=== PATIENT | female | born 1970 | race Caucasian/White ===

== ENCOUNTER 2023-07-23 01:31 | Emergency (ER) | payer SELFPAY ==
[2023-07-23 01:59] VITALS: BP 167/95; PULSE 69; RESP 18; TEMP 97.6; BMI 28.2
[2023-07-23] MEDS ORDERED: VALSARTAN 80 MG TABLET ONE (02:10)
[2023-07-23] MEDS: VALSARTAN 40 MG TABLET PO ONE (02:26)
== END 2023-07-23 02:54 | disposition home or self-care (01) ==
LOC: JER 01:31
DX: I10 Essential (primary) hypertension (principal)
CPT/HCPCS: 93005; 93010; 99283-25

== ENCOUNTER 2023-08-09 00:43 | Emergency (ER) | payer OTHER ==
[2023-08-09 00:52] VITALS: TEMP 97.4; BMI 26.6
[2023-08-09 01:07] VITALS: RESP 16
[2023-08-09 01:52] VITALS: BP 157/85; PULSE 61
== END 2023-08-09 02:01 | disposition home or self-care (01) ==
LOC: JER 00:43
DX: R42 Dizziness and giddiness (principal); I10 Essential (primary) hypertension
CPT/HCPCS: 99283-25